=== PATIENT | male | born 1980 | race Caucasian/White ===

== ENCOUNTER 2016-12-26 01:59 | Inpatient (IN) | payer OTHER ==
[2016-12-26] VITALS (9 sets, daily range): BP systolic 114–151; BP diastolic 65–93; PULSE 94–118; RESP 14–28; TEMP 98–98.7; O2SAT 93–100
[~2016-12-26] VITALS: Ht 180.3 cm; Wt 80.6 kg
[~2016-12-26 01:59] MED LIST: 1-ME1LIQ PO; ALBU0.086 NEB; ALBU8I INH; CHLO25 PO; FOLI1 PO; LORA-474 PO; THIA100T PO
[2016-12-26] MEDS ORDERED: AMLO5TAB2 PO (02:17)
[2016-12-26] MEDS ORDERED: VENTAER INH (02:17)
[2016-12-26] MEDS ORDERED: AMLO10TA2 PO (02:17)
[2016-12-26] MEDS ORDERED: ALBU.5I NEB (02:17)
[2016-12-26] MEDS ORDERED: methylPREDNISolone SOD SUCC 125 MG/2 ML VIAL IVP ONE (02:45)
[2016-12-26] MEDS ORDERED: AZITHROMYCIN INJ 500 MG in SODIUM CHLOR 0.9% 250 ML INJ 250 ML IV ONE (02:45)
[2016-12-26] MEDS ORDERED: RESP: ALBUTEROL 2.5 MG/IPRATROPIUM 0.5 MG NEB (SCH) INH ONE (02:45)
[2016-12-26] MEDS ORDERED: cefTRIAXone INJ 1,000 MG in SODIUM CHLORIDE 0.9% INJ 100 ML IV ONE (02:45)
[2016-12-26] MEDS ORDERED: SODIUM CHLORIDE 0.9% FLUSH 5 ML FLUSH IVF PRN (02:45)
[2016-12-26 03:03] LABS: AUTOMATED NEUTROPHIL # 4.2 TH/MM3 (1.8-7.7); BASOPHIL # 0.3 TH/MM3 (0-0.2); BASOPHIL % 3.2 % (0.0-2.0); EOSINOPHIL # 0.8 TH/MM3 (0-0.4); EOSINOPHIL % 7.1 % (0.0-4.0); HEMATOCRIT 37.4 % (39.0-51.0); HEMO FLAGS DIFF FINAL; LYMPH % 39.7 % (9.0-44.0); LYMPHOCYTE # 4.3 TH/MM3 (1.0-4.8); MEAN CELL VOLUME 92.5 FL (80.0-100.0); MEAN CORPUSCULAR HEMOGLOBIN 31.2 PG (27.0-34.0); MEAN CORPUSCULAR HGB CONC 33.7 % (32.0-36.0); MONO % 10.8 % (0.0-8.0); NEUT % 39.2 % (16.0-70.0); PLATELET COUNT 305 TH/MM3 (150-450); RED BLOOD COUNT 4.04 MIL/MM3 (4.50-5.90); RED CELL DISTRIBUTION WIDTH 14.2 % (11.6-17.2); WHITE BLOOD COUNT 10.8 TH/MM3 (4.0-11.0)
[2016-12-26 03:15] LABS: APTT (PATIENT) 28.9 SEC (24.3-30.1); INTERNATIONAL NORMALIZED RATIO 0.9 RATIO; PROTHROMBIN TIME - PATIENT 10.2 SEC (9.8-11.6)
[2016-12-26 03:23] LABS: ANION GAP 12 MEQ/L (5-15); BICARBONATE 21.5 MEQ/L (21.0-32.0); BLOOD UREA NITROGEN 15 MG/DL (7-18); CHLORIDE 107 MEQ/L (98-107); MAGNESIUM 3.4 MG/DL (1.5-2.5); SODIUM (NA) 140 MEQ/L (136-145)
[2016-12-26] MEDS: RESP: ALBUTEROL 2.5 MG/IPRATROPIUM 0.5 MG NEB (SCH) INH (03:30)
[2016-12-26 03:36] LABS: ALKALINE PHOSPHATASE 65 U/L (45-117); ALT (GPT) 44 U/L (12-78); AST (GOT) 22 U/L (15-37); CREATINE KINASE 179 U/L (39-308); GLOMERULAR FILTRATION RATE 115 ML/MIN (>89); TOTAL BILIRUBIN ADULT 0.2 MG/DL (0.2-1.0)
--- NOTE | 2016-12-26 03:37 | PD ---
HPI Chief Complaint: Respiratory Distress Time Seen by Provider: 02:06 Travel History International Travel<30 days: No Contact w/Intl Traveler<30days: No Traveled to known affect area: No History of Present Illness HPI The patient is a 36 year old male who presents to the [facility] emergency department with a history of being placed under arrest and and tranported to a local residential approximately 45 minutes prior to arrival in the emergency department. The patient reports that approximately 2 years ago he was diagnosed with COPD. He reports that he continues to smoke although he is trying to quit. He is followed by the [facility] for his primary care. He reports that he has been using nebulizer treatments more frequently over the last week. He reports that he has had a dry cough. The patient reports that after being transported to the residential he began to have wheezing. Ambulance services were called by the [employer] [employer] staff officer. The patient was noted to have diffuse wheezing. The patient was brought in by ambulance services with albuterol nebulizer treatments being administered en route. The patient was also given Solu-Medrol 125 mg IV 1, magnesium 2 g IV, and 0.3 mg of subcutaneous epinephrine times one. The patient denies any history of recent neck pain, abdominal pain, vomiting, diarrhea, urinary symptoms, or neurologic symptoms. The patient denies having any fevers. He reports that he did receive his influenza vaccination this past season. [facility] Past Medical History Narrative Medical The patient's past medical history is significant for COPD, history of alcohol abuse, hypertension. Arthritis: Yes Autoimmune Disease: No Anxiety: Yes Depression: Yes Cancer: No Cardiovascular Problems: Yes COPD: Yes Diminished Hearing: No Endocrine: No Gastrointestinal Disorders: Yes ("ELEVATED LIVER ENZYMES") Genitourinary: No Hypertension: Yes Immune Disorder: No Implanted Vascular Access Dvce: Yes Musculoskeletal: Yes (CHRONIC FX FROM ARTHRITIS BILATERAL ANKLES) Neurologic: Yes Psychiatric: Yes Reproductive: No Respiratory: Yes (copd) Immunizations Current: Yes Pneumonia: Yes Seizures: Yes (alcohol related, last one was March) Past Surgical History Narrative Surgical The patient's past surgical history is significant for bilateral ankle fracture surgery in 2002, history of maxillofacial surgery, history of right arm ORIF. Body Medical Devices: titanium plate r side of face, screws/pins bilat ankles Other Surgery: Yes (TITANIUM PLATE AND SCREWS TO RIGHT FACE/SKULL) Social History Alcohol Use: Yes (a couple times a week) Tobacco Use: Yes (11/02 PPD) Substance Use: Yes (MARIJUANA) Allergies-Medications (Allergen,Severity, Reaction): Coded Allergies: No Known Allergies (Unverified , 06/21/16) Reported Meds & Prescriptions Reported Meds & Active Scripts Active Reported Amlodipine (Amlodipine Besylate) 10 Mg Tab 10 Mg PO DAILY Amlodipine (Amlodipine Besylate) 5 Mg Tab 5 Mg PO DAILY Ventolin Hfa 18 GM Inh (Albuterol Sulfate) 90 Mcg/Act Aer 1 Puff INH Q4H PRN Albuterol Neb (Albuterol Sulfate) 2.5 Mg/0.5 Ml Neb 2.5 Mg NEB ONCE Note: The Albuterol Sulfate Inhalation Solution is concentrated and must be diluted. Read complete instructions carefully before using. Review of Systems Except as stated in HPI: all other systems reviewed are Neg General / Constitutional: No: Fever Eyes: No: Visual changes HENT: Positive: Congestion, No: Headaches Cardiovascular: Positive: Dyspnea on exertion, No: Chest Pain or Discomfort Respiratory: Positive: Cough, Shortness of Breath, Wheezing Gastrointestinal: Positive: Nausea, No: Vomiting, Diarrhea, Abdominal Pain, Changes in Bowel Habits, Indigestion, Loss of Appetite Genitourinary: No: Dysuria Musculoskeletal: No: Pain Skin: No Rash Neurologic: No: Weakness, Focal Abnormalities, Coordination Problem, Change in Mentation, Slurred Speech, Sensory Disturbance Psychiatric: No: Depression Endocrine: No: Polydipsia Hematologic/Lymphatic: No: Easy Bruising Physical Exam Narrative General: The patient is a well-developed well-nourished male, short of breath on arrival with some wheezing noted and a frequent dry cough on exam. Head and Neck exam: Head is normocephalic atraumatic. Eyes: EOMI, pupils are equal round and reactive to light. Nose: Midline septum with pink mucous membranes Mouth: Dentition unremarkable. Moist mucus membranes. Posterior oropharynx is not erythematous. No tonsillar hypertrophy. Uvula midline. Airway patent. Neck: No palpable lymphadenopathy. No nuchal rigidity. No thyromegaly. Cardiovascular: Sinus tachycardia in the low 100s without murmurs, gallops, or rubs. No pulse deficit to the extremities and simultaneous auscultation and palpation of his radial artery. Lungs: The patient has expiratory wheezes audible throughout bilateral lung wilson, no rhonchi, no crackles. Abdomen: Soft, without tenderness to palpation in all 4 quadrants of the abdomen. No guarding, rebound, or rigidity. Normal bowel sounds are audible. Extremities: No clubbing or cyanosis, trace pedal edema left lower extremity. The patient reports having chronic swelling of bilateral ankles intermittently related to hardware being in place and a prior injury. 2+ pulses in all 4 extremities. No calf tenderness on palpation. Back: No spinous process tenderness to palpation. No costovertebral angle tenderness to palpation. Neurologic Exam: Grossly nonfocal. Skin Exam: No rash noted. Intact skin that is warm and dry. Data Data Last Documented VS Vital Signs Date Time Temp Pulse Resp B/P Pulse Ox O2 Delivery O2 Flow Rate FiO2 12/26/16 04:00 94 14 114/73 93 Nasal Cannula 2 12/26/16 02:03 98.7 Orders Complete Blood Count With Diff (12/26/16 02:42) Comprehensive Metabolic Panel (12/26/16 02:42) B-Type Natriuretic Peptide (12/26/16 02:42) Act Partial Throm Time (Ptt) (12/26/16 02:42) Prothrombin Time / Inr (Pt) (12/26/16 02:42) Magnesium (Mg) (12/26/16 02:42) Ckmb (Isoenzyme) Profile (12/26/16 02:42) Troponin I (12/26/16 02:42) Urinalysis - C+S If Indicated (12/26/16 02:42) Influenzae A/B Antigen (12/26/16 02:42) Blood Culture (12/26/16 02:42) Iv Access Insert/Monitor (12/26/16 02:42) Electrocardiogram (12/26/16 02:42) Ecg Monitoring (12/26/16 02:42) Oximetry (12/26/16 02:42) Oxygen Administration (12/26/16 02:42) Chest, Single Ap (12/26/16 02:42) Sodium Chloride 0.9% Flush (Ns Flush) (12/26/16 02:45) Methylprednisolone So Succ Inj (Solumedr (12/26/16 02:45) Albuterol-Ipratropium Neb (Duoneb Neb) (12/26/16 02:45) Ceftriaxone Inj (Rocephin Inj) (12/26/16 02:45) Azithromycin Inj (Zithromax Inj) (12/26/16 02:45) Albuterol-Ipratropium Neb (Duoneb Neb) (12/26/16 03:30) CKMB (12/26/16 02:45) CKMB% (12/26/16 02:45) Admit Order (Ed Use Only) (12/26/16 05:10) Labs Laboratory Tests Test 12/26/16 12/26/16 02:45 04:50 White Blood Count 10.8 TH/MM3 Red Blood Count 4.04 MIL/MM3 Hemoglobin 12.6 GM/DL Hematocrit 37.4 % Mean Corpuscular Volume 92.5 FL Mean Corpuscular Hemoglobin 31.2 PG Mean Corpuscular Hemoglobin 33.7 % Concent Red Cell Distribution Width 14.2 % Platelet Count 305 TH/MM3 Mean Platelet Volume 9.6 FL Neutrophils (%) (Auto) 39.2 % Lymphocytes (%) (Auto) 39.7 % Monocytes (%) (Auto) 10.8 % Eosinophils (%) (Auto) 7.1 % Basophils (%) (Auto) 3.2 % Neutrophils # (Auto) 4.2 TH/MM3 Lymphocytes # (Auto) 4.3 TH/MM3 Monocytes # (Auto) 1.2 TH/MM3 Eosinophils # (Auto) 0.8 TH/MM3 Basophils # (Auto) 0.3 TH/MM3 CBC Comment DIFF FINAL Differential Comment Prothrombin Time 10.2 SEC Prothromb Time International 0.9 RATIO Ratio Activated Partial 28.9 SEC Thromboplast Time Sodium Level 140 MEQ/L Potassium Level 4.0 MEQ/L Chloride Level 107 MEQ/L Carbon Dioxide Level 21.5 MEQ/L Anion Gap 12 MEQ/L Blood Urea Nitrogen 15 MG/DL Creatinine 0.76 MG/DL Estimat Glomerular Filtration 115 ML/MIN Rate Random Glucose 103 MG/DL Calcium Level 8.9 MG/DL Magnesium Level 3.4 MG/DL Total Bilirubin 0.2 MG/DL Aspartate Amino Transf 22 U/L (AST/SGOT) Alanine Aminotransferase 44 U/L (ALT/SGPT) Alkaline Phosphatase 65 U/L Total Creatine Kinase 179 U/L Creatine Kinase MB 1.8 NG/ML Troponin I LESS THAN 0.02 NG/ML B-Type Natriuretic Peptide 15 PG/ML Total Protein 7.2 GM/DL Albumin 4.1 GM/DL Urine Color YELLOW Urine Turbidity CLEAR Urine pH 5.5 Urine Specific [place] 1.021 Urine Protein NEG mg/dL Urine Glucose (UA) 70 mg/dL Urine Ketones 10 mg/dL Urine Occult Blood NEG Urine Nitrite NEG Urine Bilirubin NEG Urine Urobilinogen LESS THAN 2.0 MG/DL Urine Leukocyte Esterase NEG Urine RBC LESS THAN 1 /hpf Urine WBC 1 /hpf Urine Mucus FEW /lpf Microscopic Urinalysis Comment CULT NOT INDICATED MDM Medical Decision Making Medical Screen Exam Complete: Yes Emergency Medical Condition: Yes Medical Record Reviewed: Yes Interpretation(s) Last Impressions Chest X-Ray 12/26/16 0242 Signed Impressions: Service Date/Time: Monday, December 26, 2016 02:59 - CONCLUSION: 1. Left- sided perihilar and basilar airspace disease most characteristic of a mild bronchopneumonia. Gonzales Hensley MD Differential Diagnosis Influenza, versus pneumonia, versus COPD exacerbation, versus bronchitis, versus congestive heart failure, versus pneumothorax Narrative Course During the course of the patients emergency department visit, the patients history, examination, and differential diagnosis were reviewed with the patient. The patient had IV access obtained and blood work sent for analysis. The patient was placed on a sail cutter with oximetry and blood pressure monitoring. An EKG has been ordered. The patient's EKG reveals a sinus rhythm of 97, nonspecific T-wave abnormalities, no acute ST segment elevation. The patient was provided DuoNeb 3, Solu-Medrol 125 mg IV was given prior to arrival by ambulance services, Rocephin 1 g IV and azithromycin 500 mg IV was administered 1. The patients laboratory studies were reviewed and remarkable for a white count of 10.8, hemoglobin 12.6, platelets 305 with 10.8 monocytes, CMP is remarkable for magnesium of 3.4, CPK 179, troponin I less than 0.02, BNP 15, PT PTT unremarkable. Urinalysis shows 70 glucose, ketones 10. Radiology studies were reviewed and remarkable for a chest x-ray that shows a left-sided perihilar and basilar airspace disease most characteristic of a mild bronchopneumonia. The patient was treated with antibiotic. The patient on reexamination continues to have diffuse wheezing and is requiring supplemental nasal cannula O2. The patients results were discussed with the patient, including the plan of care. I explained that further testing and/ or monitoring is indicated based on the patients history, examination, and/ or laboratory findings. Therefore, I recommended admission for additional evaluation. The patient expressed understanding and was agreeable with this plan. The patient was admitted to the hospital in stable condition and [facility] Sepsis Criteria SIRS Criteria (2 or more): Heart rate over 90, RR > 20 or PaCO2 < 32 Physician Communication Physician Communication The [facility] agree to admit the patient for further evaluation and treatment at this time. Diagnosis Primary Impression: COPD exacerbation Additional Impression: Pneumonia Qualified Code: J18.1 - Pneumonia of left lower lobe due to infectious organism Admitting Information Admitting Physician Requests: Admit Pily Robles MD Dec 26, 2016 03:36
[2016-12-26 03:48] LABS: CKMB 1.8 NG/ML (0.5-3.6)
--- NOTE | 2016-12-26 04:09 | RADRPT ---
EXAM DATE/TIME: 12/26/2016 02:59 [facility] COMPARISON: CHEST SINGLE AP, February 20, 2015, 7:34. INDICATIONS : Patient states cough. MEDICAL HISTORY : None. SURGICAL HISTORY : None. ENCOUNTER: Initial ACUITY: 2 days PAIN SCORE: 2/10 LOCATION: Bilateral chest FINDINGS: There is mild left perihilar airspace disease that may represent mild bronchopneumonia. Right lung re latively clear. No effusion. No pneumothorax. Heart size within normal limits. CONCLUSION: 1. Left-sided perihilar and basilar airspace disease most characteristic of a mild bronchopneumonia. Gonzales Hensley MD on December 26, 2016 at 4:05 Board Certified Radiologist. This report was verified electronically.
[2016-12-26 05:01] LABS: BLOOD, URINE NEG (NEG); COMMENT (UR) CULT NOT INDICATED; CULTURE IF INDICATED CULT NOT INDICATED; GLUCOSE,URINE 70 mg/dL (NEG); KETONE, URINE 10 mg/dL (NEG); MUCUS URINE FEW /lpf (OCC); NITRITE,URINE NEG (NEG); PH, URINE 5.5 (5.0-8.5); URINE COLOR YELLOW (YELLW/STRAW)
[2016-12-26] MEDS ORDERED: SODIUM CHLORIDE 0.9% FLUSH 5 ML FLUSH FLUSH PRN (05:15)
[2016-12-26] MEDS ORDERED: NALOXONE HCL 0.4 MG/ML AMP IV PRN (05:15)
[2016-12-26] MEDS ORDERED: ACETAMINOPHEN 325 MG TAB PO PRN (05:15)
[2016-12-26] MEDS ORDERED: cefTRIAXone INJ 1,000 MG in SODIUM CHLORIDE 0.9% INJ 100 ML IV SCH (05:30)
[2016-12-26] MEDS: SODIUM CHLOR 0.9% 1000 ML INJ 1,000 ML IV SCH ×2 (06:08→14:29)
[2016-12-26] MEDS: RESP: ALBUTEROL 2.5 MG/IPRATROPIUM 0.5 MG NEB (SCH) NEB ×4 (07:35→19:45)
--- NOTE | 2016-12-26 08:41 | HHI.HP ---
[facility] Admission Diagnosis copd exacerbation, pneumonia Diagnoses: Chief Complaint: sob, cough, wheezing Travel History International Travel<30 Days: No Contact w/Intl Traveler <30 Da: No Traveled to Known Affected Are: No History of Present Illness This is a 36-year-old male history of COPD, hypertension, alcohol abuse. Apparently patient was placed under arrest last night and at the skilled nursing he started to complain of shortness of breath. Indicates he's had increased cough with wheezing. He's had increased nasal drainage, no sputum. He thinks he may have had a fever associated with chills. He continues to smoke approximately half a pack. Patient also endorses history of EtOH abuse, he had a couple of bottles of wine yesterday. Noted very tremulous, states "I'm going through withdrawals". In the emergency room, patient was evaluated was noted hypoxic. He was tachycardic, no fever. Hemodynamically stable. Artery workup essentially unremarkable. No white blood count elevation. Chest x-ray showed left-sided perihilar and basilar airspace disease most characteristic of a mild bronchopneumonia. Cultures were obtained, influenza was negative. Patient was started on empiric antibiotics, given DuoNeb's and IV steroids. Patient is evaluated in the presence of 2 guards. SOB has improved. Patient is admitted for further evaluation and treatment. Review of Systems Constitutional: COMPLAINS OF: Fever, Chills, DENIES: Diaphoretic episodes, Fatigue, Weight gain, Weight loss, Dizziness, Change in appetite, Night Sweats Endocrine: DENIES: Heat/cold intolerance, Polydipsia, Polyuria, Polyphagia Eyes: DENIES: Blurred vision, Diplopia, Eye inflammation, Eye pain, Vision loss , Photosensitivity, Double Vision Ears, nose, mouth, throat: DENIES: Tinnitus, Hearing loss, Vertigo, Nasal discharge, Oral lesions, Throat pain, Hoarseness, Ear Pain, Running Nose, Epistaxis, Sinus Pain, Toothache, Odynophagia Respiratory: COMPLAINS OF: Cough, Wheezing, Sputum production, Shortness of breath, DENIES: Apneas, Snoring, Hemoptysis Cardiovascular: COMPLAINS OF: Chest pain, DENIES: Palpitations, Syncope, Dyspnea on Exertion, PND, Lower Extremity Edema, Orthopnea, Claudication Gastrointestinal: DENIES: Abdominal pain, Black stools, Bloody stools, Constipation, Diarrhea, Nausea, Vomiting, Difficulty Swallowing, Anorexia Genitourinary: DENIES: Sexual dysfunction, Urinary frequency, Urinary incontinence, Urgency, Hematuria, Dysuria, Nocturia, Penile Discharge, Testicular Pain, Testicular Swelling Musculoskeletal: DENIES: Joint pain, Muscle aches, Stiffness, Joint Swelling, Back pain, Neck pain Integumentary: DENIES: Abnormal pigmentation, Nail changes, Pruritus, Rash Hematologic/lymphatic: DENIES: Bruising, Lymphadenopathy Immunologic/allergic: DENIES: Eczema, Urticaria Neurologic: DENIES: Abnormal gait, Headache, Localized weakness, Paresthesias, Seizures, Speech Problems, Tremor, Poor Balance Psychiatric: COMPLAINS OF: Anxiety, DENIES: Confusion, Mood changes, Depression, Hallucinations, Agitation, Suicidal Ideation, Homicidal Ideation, Delusions Past Family Social History Past Medical History COPD Elevated liver enzymes ETOH abuse HTN Anxiety Depression Seizures related to ETOH Past Surgical History Titanium plate and screws to right face and skull Right arm ORIF Bilateral ankle fracture surgery 2003 Reported Medications Reported Meds & Active Scripts Active Reported Amlodipine (Amlodipine Besylate) 10 Mg Tab 10 Mg PO DAILY Amlodipine (Amlodipine Besylate) 5 Mg Tab 5 Mg PO DAILY Ventolin Hfa 18 GM Inh (Albuterol Sulfate) 90 Mcg/Act Aer 1 Puff INH Q4H PRN Albuterol Neb (Albuterol Sulfate) 2.5 Mg/0.5 Ml Neb 2.5 Mg NEB ONCE Note: The Albuterol Sulfate Inhalation Solution is concentrated and must be diluted. Read complete instructions carefully before using. Allergies: Coded Allergies: No Known Allergies (Unverified , 06/21/16) Active Ordered Medications Inpatient Medications Acetaminophen (Tylenol) 650 mg Q4H PRN PO TEMP > 100.4; Start 12/26/16 at 05:15 Albuterol/ Ipratropium (Duoneb Neb) 1 ampule QID NEB NEB Last administered on 12/26/16t 07:35; Start 12/26/16 at 08:00 Albuterol/ Ipratropium 1 ampule 1 ampule Q6HR NEB PRN NEB WHEEZING; Start 12/26 at 05:30 Amlodipine Besylate 5 mg 5 mg DAILY PO ; Start 12/26/16 at 09:00 Azithromycin 500 mg/Sodium Chloride 250 ml @ 250 mls/hr Q24H IV ; Start at 04:00 Azithromycin/ Sodium Chloride (Zithromax Inj/ NS 250 ml Inj) 250 ml @ 250 mls/ hr ONCE ONCE IV Last administered on 12/26/16 04:06; Start 12/26/16 at 02:45 ; Stop 12/26/16 at 03:44; Status DC Ceftriaxone Sodium 1000 mg/ Sodium Chloride 100 ml @ 200 mls/hr Q24H IV ; Start 12/27/16 at 09:00; Stop 12/27/16 at 09:00; Status DC Ceftriaxone Sodium/Sodium Chloride (Rocephin Inj/NS Inj) 100 ml @ 200 mls/hr Q24H IV ; Start 12/27/16 at 03:00 Chlordiazepoxide (Librium) 10 mg TID PRN PO agitation; Start 12/26/16 at 08:45 ; Status UNV Enoxaparin Sodium (Lovenox Inj) 40 mg Q24H SQ ; Start 12/26/16 at 08:45; Status UNV Fluticasone Propionate (Flonase Alonso Spr) 2 spray DAILY EACH NARE ; Start at 09:00; Status UNV Folic Acid (Folate) 1 mg DAILY PO ; Start 12/26/16 at 09:00; Status UNV IV Flush (NS Flush) 2 ml BID FLUSH ; Start 12/26/16 at 09:00 Methylprednisolone Sodium Succinate (SoluMEDROL INJ) 40 mg Q12HR IV PUSH ; Start 12/26/16 at 09:00; Status UNV Methylprednisolone Sodium Succinate 125 mg 125 mg ONCE ONCE IVP ; Start at 02:45; Stop 12/26/16 at 02:46; Status DC Naloxone HCl (Narcan Inj) 0.4 mg UNSCH PRN IV SEE LABEL COMMENTS; Start at 05:15 Nicotine (Habitrol 7 Mg Patch.24 Hr) 1 patch DAILY TD ; Start 12/26/16 at 09:00 ; Status UNV Sodium Chloride (NS 1000 ml Inj) 1,000 ml @ 100 mls/hr Q10H IV Last administered on 12/26/16 06:08; Start 12/26/16 at 05:15 Thiamine HCl (Vitamin B1) 100 mg DAILY PO ; Start 12/26/16 at 09:00; Status UNV Family History Mother and father both alive and well, doesn't know about their medical history Social History Patient is unemployed, currently under the custody of the skilled nursing. Was arrested last night. Positive for alcohol use, drinks a couple of bottles once a day. Smokes half pack a day since age 15. Denies illegal drug use. Patient has no children, . Physical Exam Vital Signs Vital Signs Date Time Temp Pulse Resp B/P Pulse Ox O2 Delivery O2 Flow Rate FiO2 12/26/16 07:36 99 Nasal Cannula 3.00 12/26/16 04:00 94 14 114/73 93 Nasal Cannula 2 12/26/16 03:05 96 Nasal Cannula 3.00 12/26/16 02:03 98.7 101 28 142/65 95 12/26/16 01:59 98 Nasal Cannula 3 12/26/16 01:59 28 90 Room Air Physical Exam GENERAL: This is a well-nourished, patient noted anxious, tremulous. SKIN: No rashes, ecchymoses or lesions. Cool and dry. HEAD: Atraumatic. Normocephalic. No temporal or scalp tenderness. EYES: Pupils equal round and reactive. Extraocular motions intact. No scleral icterus. No injection or drainage. ENT: Nose without bleeding, purulent drainage or septal hematoma. Throat without erythema, tonsillar hypertrophy or exudate. Uvula midline. Airway patent. NECK: Trachea midline. No JVD or lymphadenopathy. Supple, nontender, no meningeal signs. CARDIOVASCULAR: Regular rate and rhythm without murmurs, gallops, or rubs. RESPIRATORY: Diffuse rhonchi, expiratory wheezes. GASTROINTESTINAL: Abdomen soft, non-tender, nondistended. No hepato-splenomegaly , or palpable masses. No guarding. MUSCULOSKELETAL: Extremities without clubbing, cyanosis, or edema. No joint tenderness, effusion, or edema noted. No calf tenderness. Negative Homans sign bilaterally. NEUROLOGICAL: Awake, alert oriented 3. No focal deficits. Patient is noted tremulous. Laboratory Laboratory Tests Test 12/26/16 12/26/16 02:45 04:50 White Blood Count 10.8 Red Blood Count 4.04 Hemoglobin 12.6 Hematocrit 37.4 Mean Corpuscular Volume 92.5 Mean Corpuscular Hemoglobin 31.2 Mean Corpuscular Hemoglobin 33.7 Concent Red Cell Distribution Width 14.2 Platelet Count 305 Mean Platelet Volume 9.6 Neutrophils (%) (Auto) 39.2 Lymphocytes (%) (Auto) 39.7 Monocytes (%) (Auto) 10.8 Eosinophils (%) (Auto) 7.1 Basophils (%) (Auto) 3.2 Neutrophils # (Auto) 4.2 Lymphocytes # (Auto) 4.3 Monocytes # (Auto) 1.2 Eosinophils # (Auto) 0.8 Basophils # (Auto) 0.3 CBC Comment DIFF FINAL Differential Comment Prothrombin Time 10.2 Prothromb Time International 0.9 Ratio Activated Partial 28.9 Thromboplast Time Sodium Level 140 Potassium Level 4.0 Chloride Level 107 Carbon Dioxide Level 21.5 Anion Gap 12 Blood Urea Nitrogen 15 Creatinine 0.76 Estimat Glomerular Filtration 115 Rate Random Glucose 103 Calcium Level 8.9 Magnesium Level 3.4 Total Bilirubin 0.2 Aspartate Amino Transf 22 (AST/SGOT) Alanine Aminotransferase 44 (ALT/SGPT) Alkaline Phosphatase 65 Total Creatine Kinase 179 Creatine Kinase MB 1.8 Troponin I LESS THAN 0.02 B-Type Natriuretic Peptide 15 Total Protein 7.2 Albumin 4.1 Urine Color YELLOW Urine Turbidity CLEAR Urine pH 5.5 Urine Specific [place] 1.021 Urine Protein NEG Urine Glucose (UA) 70 Urine Ketones 10 Urine Occult Blood NEG Urine Nitrite NEG Urine Bilirubin NEG Urine Urobilinogen LESS THAN 2.0 Urine Leukocyte Esterase NEG Urine RBC LESS THAN 1 Urine WBC 1 Urine Mucus FEW Microscopic Urinalysis Comment CULT NOT INDICATED Date/Time Procedure Status Source Growth 12/26/16 02:50 Influenza Types A,B Antigen (RAFA) - Final Complete Nasal Aspirate NEGATIVE FOR FLU A AND B ANTIGEN.... 12/26/16 02:45 Aerobic Blood Culture Received Blood Peripheral Pending 12/26/16 02:45 Anaerobic Blood Culture Received Blood Peripheral Pending Result Diagram: 12/26/1624412/26/16244 Imaging Last Impressions Chest X-Ray 12/26/16241 Signed Impressions: Service Date/Time: Monday, December 26, 2016 02:59 - CONCLUSION: 1. Left- sided perihilar and basilar airspace disease most characteristic of a mild bronchopneumonia. Gonzales Hensley MD Assessment and Plan Problem List: (1) COPD exacerbation (2) Pneumonia (3) Hypoxia (4) Alcohol withdrawal (5) Alcohol abuse (6) Hypertension (7) Tobacco use Assessment and Plan Admit to Dr. Clement 36-year-old male with history of COPD not oxygen dependent, tobacco abuse. Patient to the emergency room with increased cough, wheezing, shortness of breath. Found with left-sided perihilar and basilar airspace disease most characteristic of mild bronchopneumonia per x-ray. Patient admitted with COPD exacerbation, hypoxia and pneumonia. -Continue with IV fluids Continue with empiric antibiotics and follow cultures Solu-Medrol 40 mg IV every 12 Continue with DuoNeb's Monitor sats We will order Mucinex Alcohol abuse, with withdrawal symptoms Start thiamine and folic acid Librium 10 mg PO TID as needed for agitation Hypertension Continue home medication Lovenox for DVT prophylaxis Home medications reviewed, initiated as indicated Plan of care has been discussed with the patient, attending and registered nurse. Further management of the patient will be dependent on the hospital course This patient was seen by myself and Dr. Clement, this H&P is written on her behalf Physician Certification 2 Midnight Certification Type: Admission for Inpatient Services Order for Inpatient Services The services are ordered in accordance with Medicare regulations or non- Medicare payer requirements, as applicable. In the case of services not specified as inpatient-only, they are appropriately provided as inpatient services in accordance with the 2-midnight benchmark. Estimated LOS (days): 2 2 days is the estimated time the patient will need to remain in the hospital, assuming treatment plan goals are met and no additional complications. Post-Hospital Plan: Home Problem Qualifiers (1) Pneumonia: Qualified Code: J18.1 - Pneumonia of left lower lobe due to infectious organism (2) Alcohol withdrawal: Qualified Code: F10.230 - Alcohol withdrawal, uncomplicated (3) Hypertension: Qualified Code: I10 - Essential hypertension Rosmery Solis Dec 26, 2016 08:41
[2016-12-26] MEDS ORDERED: guaiFENesin/DEXTROMETHORPHAN 200 MG/20 MG/10 ML CUP PO PRN (08:45)
[2016-12-26] MEDS: FLUTICASONE PROPIONATE 50 MCG/ACT 16 GM NASAL SPRAY EACH NARE SCH (09:00)
[2016-12-26] MEDS: SODIUM CHLORIDE 0.9% FLUSH 5 ML FLUSH FLUSH SCH ×2 (09:00→21:44)
[2016-12-26] MEDS: ENOXAPARIN SODIUM 40 MG/0.4 ML SYRINGE SQ SCH (09:26)
[2016-12-26] MEDS: NICOTINE 7 MG/24 HR PATCH TD SCH (09:53)
[2016-12-26] MEDS: amLODIPine BESYLATE 5 MG TAB PO SCH (09:54)
[2016-12-26] MEDS: guaiFENesin E.R. 600 MG TAB PO SCH ×2 (09:54→21:44)
[2016-12-26] MEDS: methylPREDNISolone SOD SUCC 40 MG/1 ML VIAL IV PUSH SCH ×2 (09:54→21:44)
[2016-12-26] MEDS: THIAMINE HCL 100 MG TAB PO SCH (09:54)
[2016-12-26] MEDS: FOLIC ACID 1 MG TAB PO SCH (09:54)
--- NOTE | 2016-12-26 12:01 | EKG ---
Date Performed: 12/26/2016 Time Performed: 03:54:08 PTAGE: 36 years EKG: Sinus rhythm NONSPECIFIC T-WAVE ABNORMALITY BORDERLINE ECG Compared to the PREVIOUS TRACING , nonspecific T wave changes are more prominent PREVIOUS TRACIN2015 06.04 DOCTOR: Del Sears Interpretating Date/Time 12/26/2016 12:00:38
[2016-12-26] MEDS ORDERED: LORazepam 2 MG/ML VIAL IV ONE (19:15)
[2016-12-26] MEDS: REMOVE OLD NICODERM (NICOTINE) PATCH TD SCH (21:44)
[2016-12-27] VITALS (9 sets, daily range): BP systolic 117–152; BP diastolic 63–90; PULSE 82–99; RESP 12–20; TEMP 97.5–99.4; O2SAT 95–98
[2016-12-27] MEDS: RESP: ALBUTEROL 2.5 MG/IPRATROPIUM 0.5 MG NEB (PRN) NEB (00:26)
[2016-12-27] MEDS: AZITHROMYCIN INJ 500 MG in SODIUM CHLOR 0.9% 250 ML INJ 250 ML IV SCH (03:11)
[2016-12-27] MEDS: SODIUM CHLOR 0.9% 1000 ML INJ 1,000 ML IV SCH ×2 (03:14→10:10)
[2016-12-27] MEDS: cefTRIAXone INJ 1,000 MG in SODIUM CHLORIDE 0.9% INJ 100 ML IV SCH (03:14)
[2016-12-27] MEDS: RESP: ALBUTEROL 2.5 MG/IPRATROPIUM 0.5 MG NEB (SCH) NEB ×4 (07:26→20:07)
[2016-12-27] MEDS ORDERED: cefTRIAXone INJ 1,000 MG in SODIUM CHLORIDE 0.9% INJ 100 ML IV SCH (09:00)
[2016-12-27 09:09] LABS: AUTOMATED NEUTROPHIL # 14.4 TH/MM3 (1.8-7.7); BASOPHIL % 0.2 % (0.0-2.0); HEMATOCRIT 40.7 % (39.0-51.0); HEMO FLAGS DIFF FINAL; LYMPH % 11.8 % (9.0-44.0); LYMPHOCYTE # 2.1 TH/MM3 (1.0-4.8); MEAN CELL VOLUME 93.7 FL (80.0-100.0); MEAN CORPUSCULAR HEMOGLOBIN 31.4 PG (27.0-34.0); MEAN CORPUSCULAR HGB CONC 33.6 % (32.0-36.0); MONO % 6.8 % (0.0-8.0); NEUT % 81.2 % (16.0-70.0); PLATELET COUNT 302 TH/MM3 (150-450); RED BLOOD COUNT 4.35 MIL/MM3 (4.50-5.90); RED CELL DISTRIBUTION WIDTH 14.5 % (11.6-17.2); WHITE BLOOD COUNT 17.7 TH/MM3 (4.0-11.0)
[2016-12-27 09:28] LABS: BICARBONATE 22.4 MEQ/L (21.0-32.0); POTASSIUM 3.7 MEQ/L (3.5-5.1)
[2016-12-27] MEDS ORDERED: PNEUMOCOCCAL POLYVALENT INJ 25 MCG/0.5 ML SYR IM ONE (10:00)
[2016-12-27] MEDS: FLUTICASONE PROPIONATE 50 MCG/ACT 16 GM NASAL SPRAY EACH NARE SCH (10:09)
[2016-12-27] MEDS: guaiFENesin E.R. 600 MG TAB PO SCH ×2 (10:10→22:10)
[2016-12-27] MEDS: amLODIPine BESYLATE 5 MG TAB PO SCH (10:10)
[2016-12-27] MEDS: SODIUM CHLORIDE 0.9% FLUSH 5 ML FLUSH FLUSH SCH ×2 (10:10→22:11)
[2016-12-27] MEDS: FOLIC ACID 1 MG TAB PO SCH (10:10)
[2016-12-27] MEDS: ENOXAPARIN SODIUM 40 MG/0.4 ML SYRINGE SQ SCH (10:11)
[2016-12-27] MEDS: NICOTINE 7 MG/24 HR PATCH TD SCH (10:11)
[2016-12-27] MEDS: THIAMINE HCL 100 MG TAB PO SCH (10:11)
[2016-12-27] MEDS: methylPREDNISolone SOD SUCC 40 MG/1 ML VIAL IV PUSH SCH ×2 (10:59→22:10)
--- NOTE | 2016-12-27 16:34 | HHI.PR ---
Subjective Interval History awake alert an doriented breathing much better no fever tremors better on oxygen no other complaints Vitals/Results Intake & Output 12/26/16 12/26/16 12/27/16 15:00 23:00 07:00 Intake Total 480 ml 240 ml Output Total 250 ml 600 ml Balance 230 ml -360 ml Intake Oral 480 ml 240 ml Output Urine Total 250 ml 600 ml # Bowel Movements 0 0 Vital Signs Vital Signs Date Time Temp Pulse Resp B/P Pulse Ox O2 Delivery O2 Flow Rate FiO2 12/27/16 12:00 98.0 98 12 133/82 97 12/27/16 08:00 99.4 96 12 128/82 98 12/27/16 07:26 97 Nasal Cannula 2.00 12/27/16 04:00 98.1 99 20 151/88 96 12/27/16 00:00 98.0 98 20 152/90 96 12/26/16 20:00 98.2 98 20 151/76 94 12/26/16 19:45 100 Nasal Cannula 2.00 CBC/BMP: 12/27/16 0842 12/27/16 0842 Lab Results Laboratory Tests Test 12/27/16 08:42 White Blood Count 17.7 TH/MM3 Red Blood Count 4.35 MIL/MM3 Hemoglobin 13.7 GM/DL Hematocrit 40.7 % Mean Corpuscular Volume 93.7 FL Mean Corpuscular Hemoglobin 31.4 PG Mean Corpuscular Hemoglobin 33.6 % Concent Red Cell Distribution Width 14.5 % Platelet Count 302 TH/MM3 Mean Platelet Volume 9.4 FL Neutrophils (%) (Auto) 81.2 % Lymphocytes (%) (Auto) 11.8 % Monocytes (%) (Auto) 6.8 % Eosinophils (%) (Auto) 0.0 % Basophils (%) (Auto) 0.2 % Neutrophils # (Auto) 14.4 TH/MM3 Lymphocytes # (Auto) 2.1 TH/MM3 Monocytes # (Auto) 1.2 TH/MM3 Eosinophils # (Auto) 0.0 TH/MM3 Basophils # (Auto) 0.0 TH/MM3 CBC Comment DIFF FINAL Differential Comment Sodium Level 139 MEQ/L Potassium Level 3.7 MEQ/L Chloride Level 107 MEQ/L Carbon Dioxide Level 22.4 MEQ/L Anion Gap 10 MEQ/L Blood Urea Nitrogen 11 MG/DL Creatinine 0.65 MG/DL Estimat Glomerular Filtration 137 ML/MIN Rate Random Glucose 136 MG/DL Calcium Level 9.0 MG/DL Physical Exam General General Appearance: No Acute Distress, Comfortable Eyes Eye Exam: Pupils Equal, Pupils Reactive Throat Throat Exam: Oral Mucosa [place] & Moist Neck Neck Exam: Neck Supple Pulmonary Resp Exam: Breath Sounds Equal, No Distress Resp Remarks coarse Cardiology CV Exam: Regular, Good Perfusion Gastrointestinal/Abdomen GI Exam: Soft, Non-Tender, Bowel Sounds Present Genitourinary Exam: Clear Urine Integumentary Skin Exam: Clear, Warm Extremeties Extremities Exam: No Edema Neurologic Neuro Exam: Alert, Awake, Oriented, Speech Clear, Moving All Extremities Psychiatric Psych Exam: Appropriate Responses Assessment/Plan Assessment/Plan Assessment and Plan Assessment and Plan Problem List: (1) COPD exacerbation (2) Pneumonia (3) Hypoxia (4) Alcohol withdrawal (5) Alcohol abuse (6) Hypertension (7) Tobacco use Assessment and Plan 36-year-old male with history of COPD not oxygen dependent, tobacco abuse. Patient to the emergency room with increased cough, wheezing, shortness of breath. Found with left-sided perihilar and basilar airspace disease most characteristic of mild bronchopneumonia per x-ray. Patient admitted with COPD exacerbation, hypoxia and pneumonia. -Continue with IV fluids, decrease to 50 cc/hr Continue with empiric antibiotics and follow cultures Solu-Medrol 40 mg IV every 12 Continue with DuoNeb's Monitor sats switch to po steroids and antibiotics in am, if doing ok -leucocytosis sec to steroids Alcohol abuse, with withdrawal symptoms Start thiamine and folic acid Librium 15 mg PO TID as needed for agitation Hypertension Continue home medication Lovenox for DVT prophylaxis possibel switch to po antibiotics and steroids in am wean oxygen as tolerated discussed with patient Maral Clement MD Dec 27, 2016 16:34
[2016-12-27] MEDS: REMOVE OLD NICODERM (NICOTINE) PATCH TD SCH (22:11)
[2016-12-28] VITALS (8 sets, daily range): BP systolic 123–136; BP diastolic 68–89; PULSE 76–94; RESP 14–20; TEMP 97.5–98.7; O2SAT 90–98
[2016-12-28] MEDS: cefTRIAXone INJ 1,000 MG in SODIUM CHLORIDE 0.9% INJ 100 ML IV SCH (02:02)
[2016-12-28] MEDS: AZITHROMYCIN INJ 500 MG in SODIUM CHLOR 0.9% 250 ML INJ 250 ML IV SCH (02:02)
[2016-12-28] MEDS: SODIUM CHLOR 0.9% 1000 ML INJ 1,000 ML IV SCH (02:03)
[2016-12-28] MEDS: RESP: ALBUTEROL 2.5 MG/IPRATROPIUM 0.5 MG NEB (PRN) NEB (02:28)
[2016-12-28 07:43] LABS: AUTOMATED NEUTROPHIL # 10.5 TH/MM3 (1.8-7.7); BASOPHIL % 0.1 % (0.0-2.0); HEMATOCRIT 37.5 % (39.0-51.0); HEMO FLAGS DIFF FINAL; LYMPH % 17.5 % (9.0-44.0); LYMPHOCYTE # 2.4 TH/MM3 (1.0-4.8); MEAN CELL VOLUME 94.1 FL (80.0-100.0); MEAN CORPUSCULAR HEMOGLOBIN 31.2 PG (27.0-34.0); MEAN CORPUSCULAR HGB CONC 33.1 % (32.0-36.0); MONO % 5.6 % (0.0-8.0); NEUT % 76.8 % (16.0-70.0); PLATELET COUNT 300 TH/MM3 (150-450); RED BLOOD COUNT 3.98 MIL/MM3 (4.50-5.90); RED CELL DISTRIBUTION WIDTH 14.3 % (11.6-17.2); WHITE BLOOD COUNT 13.7 TH/MM3 (4.0-11.0)
[2016-12-28] MEDS: RESP: ALBUTEROL 2.5 MG/IPRATROPIUM 0.5 MG NEB (SCH) NEB ×4 (07:53→19:09)
[2016-12-28 08:12] LABS: BICARBONATE 25.4 MEQ/L (21.0-32.0); POTASSIUM 3.7 MEQ/L (3.5-5.1)
[2016-12-28] MEDS: ENOXAPARIN SODIUM 40 MG/0.4 ML SYRINGE SQ SCH (08:35)
[2016-12-28] MEDS: FOLIC ACID 1 MG TAB PO SCH (08:35)
[2016-12-28] MEDS: NICOTINE 7 MG/24 HR PATCH TD SCH (08:35)
[2016-12-28] MEDS: amLODIPine BESYLATE 5 MG TAB PO SCH (08:35)
[2016-12-28] MEDS: THIAMINE HCL 100 MG TAB PO SCH (08:35)
[2016-12-28] MEDS: FLUTICASONE PROPIONATE 50 MCG/ACT 16 GM NASAL SPRAY EACH NARE SCH (08:36)
[2016-12-28] MEDS: guaiFENesin E.R. 600 MG TAB PO SCH ×2 (08:36→20:48)
[2016-12-28] MEDS: SODIUM CHLORIDE 0.9% FLUSH 5 ML FLUSH FLUSH SCH ×2 (08:36→20:50)
[2016-12-28] MEDS: methylPREDNISolone SOD SUCC 40 MG/1 ML VIAL IV PUSH SCH (08:36)
--- NOTE | 2016-12-28 11:08 | HHI.PR ---
Subjective Remarks coarse cough, nonproductive appetite good alert, comfortable except to cough fatique mild no SOB at rest. (Alena Mcmanus) Objective Objective Results - Vital Signs Date Time Temp Pulse Resp B/P Pulse Ox O2 Delivery O2 Flow Rate FiO2 12/28/16 08:00 98.0 79 14 136/78 95 12/28/16 07:54 93 Nasal Cannula 2.00 12/28/16 03:37 98.2 94 18 123/68 93 12/28/16 02:30 90 Nasal Cannula 2.00 12/27/16 23:05 97.9 84 18 120/76 96 12/27/16 20:09 97 Nasal Cannula 2.00 12/27/16 19:32 97.9 90 18 123/67 96 12/27/16 16:00 97.5 82 16 117/63 95 12/27/16 12:00 98.0 98 12 133/82 97 I/O 12/27/16 12/27/16 12/27/16 12/28/16 12/28/16 12/28/16 07:00 15:00 23:00 07:00 15:00 23:00 Intake Total 240 ml 683 ml 240 ml 240 ml Output Total 600 ml 500 ml 301 ml 300 ml Balance -360 ml 183 ml -61 ml -60 ml Intake Oral 240 ml 240 ml 240 ml 240 ml IV Total 443 ml Output Urine Total 600 ml 500 ml 300 ml 300 ml Stool Total 1 ml # Bowel Movements 0 1 0 (Alena Mcmanus) Result Diagram: 12/28/1655 12/28/16 0655 ROS General: Fatigue (mild), Other (10 point ROS done, cough coarse, mild fatique improving. other systems negative.) Pulmonary: Cough GI: BM (today.) (Alena Mcmanus) Physical Exam Physical Exam PHYSICAL EXAMINATION GENERAL: This is a well-developed, well-nourished male who appears to be in no acute distress at rest He is alert and responds. HEAD: Normocephalic without any lesion or mass noted. Facial features appear symmetric. OROPHARYNGEAL: Oropharynx without erythema or edema. NECK: Supple. No nuchal rigidity or lymphadenopathy. Trachea midline without deviation. CARDIAC: Regular rhythm, regular rate, S1 and S2 are heard. Murmur none, distant hs LUNGS: Clear to auscultation bilaterally. mild ant. wheeze, mild rhonchi. No use of accessory muscles on inspiration or expiration at rest. ABDOMEN: Soft, nontender, no organomegaly or masses. Bowel sounds are heard in all four quadrants. No rebound. No guarding. EXTREMITIES: No edema. Pulses equal bilateral. NEUROLOGICAL: Patient mood and affect appropriate. No focal deficit SKIN:Warm and moist, dry Objective Remarks Im still coughing, but feeling better. (Alena Mcmanus) A/P Assessment and Plan (1) COPD exacerbation (2) Pneumonia (3) Hypoxia (4) Alcohol withdrawal (5) Alcohol abuse (6) Hypertension (7) Tobacco use Assessment and Plan 36-year-old male with history of COPD not oxygen dependent, tobacco abuse. Patient to the emergency room with increased cough, wheezing, shortness of breath. Found with left-sided perihilar and basilar airspace disease most characteristic of mild bronchopneumonia per x-ray. Patient admitted with COPD exacerbation, hypoxia and pneumonia. -Continue with IV fluids, decrease to 50 cc/hr Continue with empiric antibiotics and follow cultures Solu-Medrol 40 mg IV every 12 Continue with DuoNeb's, states they are helping. Cough continues, but breathing effort improved. Monitor sats switch to po steroids and antibiotics in am, if doing ok -leucocytosis sec to steroids Alcohol abuse, with withdrawal symptoms Start thiamine and folic acid Librium 15 mg PO TID as needed for agitation Hypertension Continue home medication Lovenox for DVT prophylaxis possible switch to po antibiotics and steroids in am, will eval with Dr. Clement. wean oxygen as tolerated discussed with patient, discharge planning possible today or am. Discussed With: Family (patient), Other (Dr. Clement, pt seen on her behalf) ( Alena Mcmanus) Assessment and Plan patient seen and examined breathing much better anxious to go home d/c i/v fluids d/c methylprednisolone switch to po prednisone starting am wean oxygen as tolerated likely home in am discussed with patient discussed with Alena FELICIANO discussed with nursing staff (Maral Clement MD) Alena Mcmanus Dec 28, 2016 11:08 Maral Clement MD Dec 28, 2016 14:50
[2016-12-28] MEDS: REMOVE OLD NICODERM (NICOTINE) PATCH TD SCH (20:50)
[2016-12-29] VITALS (7 sets, daily range): BP systolic 130–143; BP diastolic 80–95; PULSE 77–88; RESP 18–20; TEMP 97.6–98.4; O2SAT 90–95
[2016-12-29] MEDS: cefTRIAXone INJ 1,000 MG in SODIUM CHLORIDE 0.9% INJ 100 ML IV SCH (02:48)
[2016-12-29] MEDS: AZITHROMYCIN INJ 500 MG in SODIUM CHLOR 0.9% 250 ML INJ 250 ML IV SCH (02:50)
[2016-12-29] MEDS: RESP: ALBUTEROL 2.5 MG/IPRATROPIUM 0.5 MG NEB (PRN) NEB (03:01)
[2016-12-29] MEDS: RESP: ALBUTEROL 2.5 MG/IPRATROPIUM 0.5 MG NEB (SCH) NEB ×3 (06:35→15:22)
[2016-12-29 08:08] LABS: AUTOMATED NEUTROPHIL # 6.6 TH/MM3 (1.8-7.7); BASOPHIL # 0.1 TH/MM3 (0-0.2); EOSINOPHIL # 0.1 TH/MM3 (0-0.4); EOSINOPHIL % 0.8 % (0.0-4.0); HEMATOCRIT 39.5 % (39.0-51.0); HEMO FLAGS DIFF FINAL; LYMPH % 35.9 % (9.0-44.0); LYMPHOCYTE # 4.1 TH/MM3 (1.0-4.8); MEAN CELL VOLUME 94.4 FL (80.0-100.0); MEAN CORPUSCULAR HGB CONC 32.9 % (32.0-36.0); MONO % 5.6 % (0.0-8.0); NEUT % 56.7 % (16.0-70.0); PLATELET COUNT 280 TH/MM3 (150-450); RED BLOOD COUNT 4.18 MIL/MM3 (4.50-5.90); RED CELL DISTRIBUTION WIDTH 14.2 % (11.6-17.2); WHITE BLOOD COUNT 11.6 TH/MM3 (4.0-11.0)
[2016-12-29 08:30] LABS: BICARBONATE 25.6 MEQ/L (21.0-32.0); POTASSIUM 3.4 MEQ/L (3.5-5.1)
[2016-12-29] MEDS: FLUTICASONE PROPIONATE 50 MCG/ACT 16 GM NASAL SPRAY EACH NARE SCH (09:00)
[2016-12-29] MEDS ORDERED: predniSONE 20 MG TAB PO SCH (09:00)
[2016-12-29] MEDS: SODIUM CHLORIDE 0.9% FLUSH 5 ML FLUSH FLUSH SCH (09:00)
--- NOTE | 2016-12-29 09:11 | HHI.PR ---
Subjective Remarks coarse cough, nonproductive appetite good alert, fatique mild no SOB at rest. O2 sat, 95 on rm air (Alena Mcmanus) Objective Objective Results - Vital Signs Date Time Temp Pulse Resp B/P Pulse Ox O2 Delivery O2 Flow Rate FiO2 12/29/16 07:10 Room Air 12/29/16 06:37 90 Nasal Cannula 2.00 12/29/16 04:00 98.1 80 18 131/86 95 12/29/16 03:03 95 Nasal Cannula 2.00 12/29/16 00:00 98.4 84 18 130/80 93 12/28/16 20:00 97.5 76 18 128/89 98 12/28/16 16:00 98.7 83 20 132/84 97 12/28/16 16:00 Nasal Cannula 1.50 12/28/16 15:17 94 Nasal Cannula 2.00 12/28/16 12:00 97.9 88 16 131/85 94 I/O 12/28/16 12/28/16 12/28/16 12/29/16 12/29/16 12/29/16 07:00 15:00 23:00 07:00 15:00 23:00 Intake Total 240 ml 1601 ml 480 ml 240 ml Output Total 300 ml 1375 ml 200 ml Balance -60 ml 226 ml 480 ml 40 ml Intake Oral 240 ml 480 ml 480 ml 240 ml IV Total 1121 ml Output Urine Total 300 ml 1375 ml 200 ml # Voids 3 # Bowel Movements 0 1 1 (Alena Mcmanus) Result Diagram: 12/29/16 0731 12/29/16 0731 ROS General: Weakness (mild, improved) Pulmonary: Cough, SOB (exertional;) (Alena Mcmanus) Physical Exam Physical Exam PHYSICAL EXAMINATION GENERAL: well-developed, well-nourished male who appears to be in no acute distress at rest. He is alert and awake HEAD: Normocephalic without any lesion or mass noted. Facial features appear symmetric. OROPHARYNGEAL: Oropharynx without erythema or edema. NECK: Supple. No nuchal rigidity or lymphadenopathy. Trachea midline without deviation. CARDIAC: Regular rhythm, regular rate, S1 and S2 are heard, distant Murmur none LUNGS: diminished to auscultation bilaterally. no wheeze, no rhonchi ABDOMEN: Soft, nontender, no organomegaly or masses. Bowel sounds are heard in all four quadrants. No rebound. No guarding. EXTREMITIES: no edema. Pulses equal bilateral. NEUROLOGICAL: Patient mood and affect appropriate. No focal deficit SKIN:Warm and moist Objective Remarks I want go home if possible (Alena Mcmanus) A/P Assessment and Plan (1) COPD exacerbation (2) Pneumonia (3) Hypoxia (4) Alcohol withdrawal (5) Alcohol abuse (6) Hypertension (7) Tobacco use Assessment and Plan 36-year-old male with history of COPD not oxygen dependent, tobacco abuse. Patient to the emergency room with increased cough, wheezing, shortness of breath. Found with left-sided perihilar and basilar airspace disease most characteristic of mild bronchopneumonia per x-ray. Patient admitted with COPD exacerbation, hypoxia and pneumonia. -Continue with IV fluids, decrease to 50 cc/hr Continue with empiric antibiotics and follow cultures,Azithromycin, Rocephin Continue with DuoNeb's, states they are helping. Cough continues, but breathing effort improved. Flonase and cough meds used. Monitor sats, currently 95 on rm. air PO steroids OOB, activity increased, improvement with treatment plan. Alcohol abuse, with withdrawal symptoms Start thiamine and folic acid Librium 15 mg PO TID as needed for agitation Hypertension Continue home medication Lovenox for DVT prophylaxis discussed with patient, D/W Dr. Lobo, patient seen on his behalf discharge planning possible today Discharge Planning home, Discussed With: Family (patient), Other (Alena Mcmanus) Assessment and Plan Patient seen, examined by myself, Dr. Lobo Above reviewed and agreed Discussed with nurse Discussed with nurse practitioner home today No smoking No alcohol We will give a prescription for Librium for 2 weeks The patient was informed not to consume any alcohol or to drive during taking Librium He verbalized understanding . Discussed With: Nurse (Rj Lobo MD) Alena Mcmanus Dec 29, 2016 09:11 Rj Lobo MD Dec 29, 2016 13:37
[2016-12-29] MEDS: amLODIPine BESYLATE 5 MG TAB PO SCH (09:23)
[2016-12-29] MEDS: FOLIC ACID 1 MG TAB PO SCH (09:23)
[2016-12-29] MEDS: ENOXAPARIN SODIUM 40 MG/0.4 ML SYRINGE SQ SCH (09:23)
[2016-12-29] MEDS: guaiFENesin E.R. 600 MG TAB PO SCH (09:23)
[2016-12-29] MEDS: THIAMINE HCL 100 MG TAB PO SCH (09:23)
[2016-12-29] MEDS: NICOTINE 7 MG/24 HR PATCH TD SCH (09:24)
[2016-12-29] MEDS ORDERED: CHLO5CAP3 PO (13:43)
[2016-12-29] MEDS ORDERED: PRED20 PO (13:43)
--- NOTE | 2017-02-06 23:20 | HHI.DS ---
Discharge Summary Admission Date Dec 26, 2016 at 05:12 Discharge Date: Dec 29, 2016 Admitting Diagnosis copd exacerbation, pneumonia (1) COPD exacerbation (2) Pneumonia (3) Hypoxia (4) Alcohol withdrawal (5) Alcohol abuse (6) Hypertension (7) Tobacco use Imaging Last Impressions Chest X-Ray 12/26/16 0242 Signed Impressions: Service Date/Time: Monday, December 26, 2016 02:59 - CONCLUSION: 1. Left- sided perihilar and basilar airspace disease most characteristic of a mild bronchopneumonia. Gonzales Hensley MD Hospital Course This is a 36-year-old male history of COPD, hypertension, alcohol abuse. Apparently patient was placed under arrest last night and at the [facility] he started to complain of shortness of breath. Indicates he's had increased cough with wheezing. He had increased nasal drainage, no sputum. He thinks he may have had a fever associated with chills. He continues to smoke approximately half a pack. Patient also endorsed history of EtOH abuse, he had a couple of bottles of wine yesterday. Noted very tremulous, states "I'm going through withdrawals". In the emergency room, patient was evaluated was noted hypoxic. He was tachycardic, no fever. Hemodynamically stable. Artery workup essentially unremarkable. No white blood count elevation. Chest x-ray showed left-sided perihilar and basilar airspace disease most characteristic of a mild bronchopneumonia. Cultures were obtained, influenza was negative. Patient was started on empiric antibiotics, given DuoNeb's and IV steroids. Patient was evaluated in the presence of 2 guards. SOB has improved. Patient was admitted for further evaluation and treatment: (1) COPD exacerbation (2) Pneumonia (3) Hypoxia (4) Alcohol withdrawal (5) Alcohol abuse (6) Hypertension (7) Tobacco use During the course of the hospitalization, the following took place: 36-year-old male with history of COPD not oxygen dependent, tobacco abuse. Patient to the emergency room with increased cough, wheezing, shortness of breath. Found with left-sided perihilar and basilar airspace disease most characteristic of mild bronchopneumonia per x-ray. Patient admitted with COPD exacerbation, hypoxia and pneumonia. -Put on IV fluids Put empiric antibiotics and followed cultures started on Solu-Medrol 40 mg IV every 12, then switched to PO Continue with DuoNeb's Monitored sats Ordered Mucinex Alcohol abuse, with withdrawal symptoms Started thiamine and folic acid Librium 10 mg PO TID as needed for agitation Hypertension Continued home medication Lovenox for DVT prophylaxis Home medications reviewed, initiated as indicated Pt. condition improved, sats stable. Pt. discharged home in stable condition. Pt Condition on Discharge: Stable Discharge Disposition: Discharge Home Discharge Instructions DIET: Follow Instructions for: As Tolerated, No Restrictions Additional Diet Instructions: No smoking ever No alcohol ever Activities you can perform: Regular-No Restrictions Follow up Referrals: PCP Follow-up - 1 Week New Medications: Chlordiazepoxide (Chlordiazepoxide) 5 Mg Cap 5 MG PO Q6H PRN AGITATION #60 CAP Prednisone (Prednisone) 20 Mg Tab 20 MG PO DAILY Provide 30 pills of 10 mg each, take 1 pill twice a day for 10 days then 1 pill once a day for 10 days Broncospasm #20 TAB Continued Medications: Albuterol 18 GM Inh (Ventolin Hfa 18 GM Inh) 90 Mcg/Act Aer 1 PUFF INH Q4H PRN SHORTNESS OF BREATH #1 Ref 0 INHALER Albuterol Neb (Albuterol Neb) 2.5 Mg/0.5 Ml Neb 2.5 MG NEB ONCE Note: The Albuterol Sulfate Inhalation Solution is concentrated and must be diluted. Read complete instructions carefully before using. Breathing Treatment #1 Ref 0 NEBULE Amlodipine (Amlodipine) 10 Mg Tab 10 MG PO DAILY Blood Pressure Management #30 Ref 0 TAB Discontinued Medications: Amlodipine (Amlodipine) 5 Mg Tab 5 MG PO DAILY Blood Pressure Management #30 Ref 0 TAB Rosmery Solis [facility] Feb 06, 2017 23:20
== END 2016-12-29 16:06 | disposition home or self-care (01) | DRG 194 ==
LOC: NEPE 01:59 → NEDA 05:12 → NEDH 08:56 → N04B 14:25
PROVIDERS: ADMIT Internal Medicine; ATTEND Internal Medicine
DX: J18.0 Bronchopneumonia, unspecified organism (principal); J44.1 Chronic obstructive pulmonary disease with (acute) exacerbation; J44.0 Chronic obstructive pulmonary disease with (acute) lower respiratory infection; F10.239 Alcohol dependence with withdrawal, unspecified; I10 Essential (primary) hypertension; F17.210 Nicotine dependence, cigarettes, uncomplicated; R09.02 Hypoxemia
CPT/HCPCS: 71010; 80048; 80053; 81001; 82550; 82552; 83735; 83880; 84484; 85025; 85610; 85730; 87040; 87804; 90732; 93005; 94640; 94664; 96365; 96367; J0456; J0696; J1650; J2060; J2920; J7030; J7050; J7512

== ENCOUNTER 2018-01-07 15:02 | Emergency (ER) | payer OTHER ==
[~2018-01-07] VITALS: Ht 180.3 cm; Wt 89.0 kg
[~2018-01-07 15:02] MED LIST changes: -1-ME1LIQ PO; +ALBU.5I NEB; -ALBU0.086 NEB; -ALBU8I INH; +AMLO10TA2 PO; -CHLO25 PO; +CHLO5CAP3 PO; -FOLI1 PO; -LORA-474 PO; +PRED20 PO; -THIA100T PO; +VENTAER INH
[2018-01-07 15:04] VITALS: BP 137/75; PULSE 103; RESP 18; TEMP 98.8; O2SAT 96
[2018-01-07] MEDS ORDERED: GABA100C4 PO (15:18)
[2018-01-07] MEDS ORDERED: MORP1TAB24 PO (15:18)
[2018-01-07] MEDS ORDERED: OXYC1CAP PO (15:18)
[2018-01-07] MEDS ORDERED: DOXY100C PO (15:41)
[2018-01-07] MEDS ORDERED: CEPH-460 PO (15:41)
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
[2018-01-07] MEDS ORDERED: CEPHALEXIN MONOHYDRATE 500 MG CAP PO ONE (15:45)
[2018-01-07] MEDS ORDERED: DOXYCYCLINE HYCLATE 100 MG CAP PO ONE (15:45)
[2018-01-07] MEDS ORDERED: SULFAMETHOXAZOLE-TRIMETHOPRIM DS 800-160 MG TAB PO ONE (15:45)
== END 2018-01-07 15:52 | disposition home or self-care (01) ==
LOC: PHED 15:02
DX: L03.116 Cellulitis of left lower limb (principal); L03.115 Cellulitis of right lower limb; I10 Essential (primary) hypertension; J44.9 Chronic obstructive pulmonary disease, unspecified; M19.90 Unspecified osteoarthritis, unspecified site; F41.9 Anxiety disorder, unspecified; F32.9 Major depressive disorder, single episode, unspecified; F17.210 Nicotine dependence, cigarettes, uncomplicated; Z79.899 Other long term (current) drug therapy
CPT/HCPCS: 99283

== ENCOUNTER 2018-01-12 18:57 | Emergency (ER) | payer OTHER ==
[~2018-01-12] VITALS: Ht 180.3 cm; Wt 80.0 kg
[~2018-01-12 18:57] MED LIST changes: -ALBU.5I NEB; +CEPH-460 PO; -CHLO5CAP3 PO; +DOXY100C PO; +GABA100C4 PO; +MORP1TAB24 PO; +OXYC1CAP PO; -PRED20 PO; -VENTAER INH
[2018-01-12 19:26] VITALS: BP 152/92; PULSE 101; RESP 16; TEMP 98.8; O2SAT 97
--- NOTE | 2018-01-12 20:58 | PD ---
HPI Chief Complaint: Edema Time Seen by Provider: 20:46 Travel History International Travel<30 days: No Contact w/Intl Traveler<30days: No Traveled to known affect area: No History of Present Illness HPI This is a 37-year-old male with reported history of alcoholism, previous bilateral ankle fracture presents for evaluation of bilateral lower extremity edema. Symptoms started several days ago. He reports that he has had this problem several times in the past and is concerned that he may have cellulitis. He was seen at [place] recently and prescribed antibiotics but if symptoms have worsened and this is what prompted evaluation. He endorses heavy alcohol use over the past several days. Denies fevers. He has no history of DVT or PE and per chart review he has been evaluated for this edema in the past and has had negative ultrasound study. He has no history of CHF and he has been worked up for this in the past as well. Reports nausea. He has no other complaints at this time. 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) Neurologic: Yes Psychiatric: Yes Reproductive: No Respiratory: Yes (copd) Immunizations Current: Yes Pneumonia: Yes Seizures: Yes (alcohol related, last one was March) Tetanus Vaccination: Unknown Influenza Vaccination: Yes Past Surgical History Body Medical Devices: titanium plate r side of face, screws/pins bilat ankles Other Surgery: Yes (TITANIUM PLATE AND SCREWS TO RIGHT FACE/SKULL) Social History Alcohol Use: Yes (a couple times a week) Tobacco Use: Yes (11/02 PPD) Substance Use: Yes (MARIJUANA, STATES USED DILAUDID IN THE PAST) Allergies-Medications (Allergen,Severity, Reaction): Coded Allergies: No Known Allergies (Unverified Adverse Reaction, Unknown, 01/12/18) Reported Meds & Prescriptions Reported Meds & Active Scripts Active Doxycycline Hyclate 100 Mg Cap 100 Mg PO BID 10 Days Keflex (Cephalexin) 500 Mg Cap 500 Mg PO Q8H Reported Oxycodone (Oxycodone HCl) 5 Mg Cap Unknown Dose PO Q4H PRN Morphine ER (Morphine Sulfate) 15 Mg Tab 15 Mg PO BID Gabapentin 100 Mg Cap Unknown Dose PO BID Amlodipine (Amlodipine Besylate) 10 Mg Tab 10 Mg PO DAILY Review of Systems Except as stated in HPI: all other systems reviewed are Neg Physical Exam Narrative GENERAL: Disheveled male who appears older than stated age. SKIN: Warm and dry. HEAD: Atraumatic. Normocephalic. EYES: Pupils equal and round. No scleral icterus. No injection or drainage. ENT: No nasal bleeding or discharge. Mucous membranes pink and moist. NECK: Trachea midline. No JVD. CARDIOVASCULAR: Regular rate and rhythm. No murmur appreciated. RESPIRATORY: No accessory muscle use. Clear to auscultation. Breath sounds equal bilaterally. GASTROINTESTINAL: Abdomen soft, non-tender, nondistended. Hepatic and splenic margins not palpable. MUSCULOSKELETAL: No obvious deformities. Bilateral lower extremity tibial and pedal edema 2+ with mildly reddened skin. There are no open wounds. There is no induration or fluctuance. There is no proximal streaking. There is no inguinal lymphadenopathy. 2+ dorsalis pedis pulse bilaterally. Previous surgical scars noted to bilateral ankles. NEUROLOGICAL: Awake and alert. No obvious cranial nerve deficits. Motor grossly within normal limits. Mildly slurred speech. Data Data Last Documented VS Vital Signs Date Time Temp Pulse Resp B/P (MAP) Pulse Ox O2 Delivery O2 Flow Rate FiO2 01/12/18 19:26 98.8 101 16 152/92 (112) 97 Room Air Orders Orders Alcohol (Ethanol) (01/12/18 20:54) Complete Blood Count With Diff (01/12/18 20:54) Comprehensive Metabolic Panel (01/12/18 20:54) Ondansetron Inj (Zofran Inj) (01/12/18 21:00) Ketorolac Inj (Toradol Inj) (01/12/18 21:15) Lorazepam Inj (Ativan Inj) (01/12/18 21:15) Furosemide Inj (Lasix Inj) (01/12/18 22:15) Ed Discharge Order (01/12/18 22:13) Labs Laboratory Tests Test 01/12/18 21:09 White Blood Count 9.8 TH/MM3 Red Blood Count 4.04 MIL/MM3 Hemoglobin 13.0 GM/DL Hematocrit 38.4 % Mean Corpuscular Volume 94.9 FL Mean Corpuscular Hemoglobin 32.2 PG Mean Corpuscular Hemoglobin Concent 33.9 % Red Cell Distribution Width 13.9 % Platelet Count 299 TH/MM3 Mean Platelet Volume 8.8 FL Neutrophils (%) (Auto) 69.0 % Lymphocytes (%) (Auto) 21.9 % Monocytes (%) (Auto) 5.2 % Eosinophils (%) (Auto) 2.7 % Basophils (%) (Auto) 1.2 % Neutrophils # (Auto) 6.7 TH/MM3 Lymphocytes # (Auto) 2.1 TH/MM3 Monocytes # (Auto) 0.5 TH/MM3 Eosinophils # (Auto) 0.3 TH/MM3 Basophils # (Auto) 0.1 TH/MM3 CBC Comment DIFF FINAL Differential Comment Blood Urea Nitrogen 10 MG/DL Creatinine 0.57 MG/DL Random Glucose 112 MG/DL Total Protein 7.8 GM/DL Albumin 4.1 GM/DL Calcium Level 9.4 MG/DL Alkaline Phosphatase 104 U/L Aspartate Amino Transf (AST/SGOT) 55 U/L Alanine Aminotransferase (ALT/SGPT) 53 U/L Total Bilirubin 0.2 MG/DL Sodium Level 138 MEQ/L Potassium Level 3.6 MEQ/L Chloride Level 101 MEQ/L Carbon Dioxide Level 28.2 MEQ/L Anion Gap 9 MEQ/L Estimat Glomerular Filtration Rate 159 ML/MIN Ethyl Alcohol Level 68 MG/DL MDM Medical Decision Making Medical Screen Exam Complete: Yes Emergency Medical Condition: Yes Medical Record Reviewed: Yes Differential Diagnosis Dependent edema, hypoalbuminemia, nephrotic syndrome, bilateral DVT, bilateral cellulitis Narrative Course The patient's examination is most consistent with edema secondary to dependent edema versus hypoalbuminemia from chronic liver disease secondary to alcoholism versus chronic edema secondary to previous surgeries. There are no obvious cellulitic changes. Lab work was obtained today which is reassuring, no leukocytosis. At this point in time the plan is to give him a dose of IV Lasix and have him follow-up with his primary care physician. Recommended elevation and compression stockings. He is stable for discharge. Diagnosis Primary Impression: Dependent edema Referrals: [facility] Additional Instructions: Compression stockings. Elevate. Follow-up with primary care physician. Follow -up at [facility] for help with alcohol detoxification. Return for any emergent medical conditions. Med/Other Pt SpecificInfo: No Change to Meds Disposition: 01 DISCHARGE HOME Condition: Stable Trevon Diez Jan 12, 2018 20:58
[2018-01-12] MEDS ORDERED: ONDANSETRON HCL 4 MG/2 ML VIAL IV PUSH ONE (21:00)
[2018-01-12] MEDS ORDERED: LORazepam 2 MG/ML VIAL IV PUSH ONE (21:15)
[2018-01-12] MEDS ORDERED: KETOROLAC TROMETHAMINE 30 MG/ML (IVP) VIAL IV PUSH ONE (21:15)
[2018-01-12 21:23] LABS: AUTOMATED NEUTROPHIL # 6.7 TH/MM3 (1.8-7.7); BASOPHIL # 0.1 TH/MM3 (0-0.2); BASOPHIL % 1.2 % (0.0-2.0); EOSINOPHIL # 0.3 TH/MM3 (0-0.4); EOSINOPHIL % 2.7 % (0.0-4.0); HEMATOCRIT 38.4 % (39.0-51.0); LYMPH % 21.9 % (9.0-44.0); LYMPHOCYTE # 2.1 TH/MM3 (1.0-4.8); MEAN CELL VOLUME 94.9 FL (80.0-100.0); MEAN CORPUSCULAR HEMOGLOBIN 32.2 PG (27.0-34.0); MEAN CORPUSCULAR HGB CONC 33.9 % (32.0-36.0); MEAN PLATELET VOLUME 8.8 FL (7.0-11.0); MONO % 5.2 % (0.0-8.0); MONOCYTE # 0.5 TH/MM3 (0-0.9); PLATELET COUNT 299 TH/MM3 (150-450); RED BLOOD COUNT 4.04 MIL/MM3 (4.50-5.90); RED CELL DISTRIBUTION WIDTH 13.9 % (11.6-17.2); WHITE BLOOD COUNT 9.8 TH/MM3 (4.0-11.0)
[2018-01-12 21:36] LABS: ALBUMIN 4.1 GM/DL (3.4-5.0); AST (GOT) 55 U/L (15-37); BICARBONATE 28.2 MEQ/L (21.0-32.0); BLOOD UREA NITROGEN 10 MG/DL (7-18); CALCIUM 9.4 MG/DL (8.5-10.1); CHLORIDE 101 MEQ/L (98-107); CREATININE 0.57 MG/DL (0.60-1.30); GLOMERULAR FILTRATION RATE 159 ML/MIN (>89); GLUCOSE,RANDOM 112 MG/DL (74-106); SODIUM (NA) 138 MEQ/L (136-145)
[2018-01-12 21:37] LABS: ALT (GPT) 53 U/L (12-78)
[2018-01-12 21:39] LABS: ALKALINE PHOSPHATASE 104 U/L (45-117); TOTAL BILIRUBIN ADULT 0.2 MG/DL (0.2-1.0); TOTAL PROTEIN 7.8 GM/DL (6.4-8.2)
[2018-01-12] MEDS ORDERED: FUROSEMIDE 20 MG/2 ML VIAL IV PUSH ONE (22:15)
== END 2018-01-12 22:42 | disposition home or self-care (01) ==
LOC: NEPD 18:57
DX: R60.0 Localized edema (principal); J44.9 Chronic obstructive pulmonary disease, unspecified; I10 Essential (primary) hypertension; R11.0 Nausea; F12.90 Cannabis use, unspecified, uncomplicated; Z72.89 Other problems related to lifestyle; Z72.0 Tobacco use; Z79.899 Other long term (current) drug therapy
CPT/HCPCS: 80053; 80307; 85025; 96374; 96375; 99284; J1885; J1940; J2060; J2405

== ENCOUNTER 2018-01-21 15:41 | Emergency (ER) | payer OTHER ==
[2018-01-21 15:50] VITALS: BP 159/102; PULSE 114; RESP 20; RESP 26; TEMP 99.9; O2SAT 99
--- NOTE | 2018-01-21 16:11 | PD ---
HPI Chief Complaint: Alcohol/Drug Intoxication Time Seen by Provider: 15:53 Travel History International Travel<30 days: No Contact w/Intl Traveler<30days: No History of Present Illness HPI 37yo M with PMH of alcohol abuse here with multiple complaints. Pt usually drinks 2 liters of vodka but has been self detoxing taking a shot here and there. Pt is diaphoretic, shaky, tachycardic and has positive review of systems. He complains of midsternal chest pain and sob. Feels generalized weakness. Pt had bilateral ankle fractures and is on opiates as well. Said he last took his opiate today. Last had a drink a few hours ago. 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) Neurologic: Yes Psychiatric: Yes Reproductive: No Respiratory: Yes (copd) Immunizations Current: Yes Pneumonia: Yes Seizures: Yes (alcohol related, last one was March) Past Surgical History Body Medical Devices: titanium plate r side of face, screws/pins bilat ankles Other Surgery: Yes (TITANIUM PLATE AND SCREWS TO RIGHT FACE/SKULL) Social History Alcohol Use: Yes (a couple times a week) Tobacco Use: Yes (11/02 PPD) Substance Use: Yes (MARIJUANA, STATES USED DILAUDID IN THE PAST) Allergies-Medications (Allergen,Severity, Reaction): Coded Allergies: No Known Allergies (Unverified Adverse Reaction, Unknown, 01/21/18) Reported Meds & Prescriptions Reported Meds & Active Scripts Active Amlodipine (Amlodipine Besylate) 10 Mg Tab 10 Mg PO DAILY Chlordiazepoxide HCl 25 Mg Capsule 50 Mg PO Q6HR PRN 3 Days Reported Oxycodone (Oxycodone HCl) 5 Mg Cap Unknown Dose PO Q4H PRN Morphine ER (Morphine Sulfate) 15 Mg Tab 15 Mg PO BID Gabapentin 100 Mg Cap Unknown Dose PO BID Amlodipine (Amlodipine Besylate) 10 Mg Tab 10 Mg PO DAILY Review of Systems Except as stated in HPI: all other systems reviewed are Neg Physical Exam Narrative GENERAL: 37yo M in mild distress. SKIN: Diaphoretic. HEAD: Atraumatic. Normocephalic. EYES: Pupils equal and round. No scleral icterus. No injection or drainage. ENT: No nasal bleeding or discharge. Mucous membranes pink and moist. NECK: Trachea midline. No JVD. CARDIOVASCULAR: Regular rate and rhythm. No murmur appreciated. RESPIRATORY: No accessory muscle use. Clear to auscultation. Breath sounds equal bilaterally. GASTROINTESTINAL: Abdomen soft, non-tender, nondistended. MUSCULOSKELETAL: No obvious deformities. No clubbing. No cyanosis. No edema. NEUROLOGICAL: Awake and alert. No obvious cranial nerve deficits. Motor grossly within normal limits in all extremities. Normal speech. Tremulous. + Tongue fasciculations. Data Data Last Documented VS Vital Signs Date Time Temp Pulse Resp B/P (MAP) Pulse Ox O2 Delivery O2 Flow Rate FiO2 01/21/18 19:39 100 20 150/109 (123) 98 01/21/18 17:44 Room Air 01/21/18 16:26 99.9 Orders Orders Complete Blood Count With Diff (01/21/18 16:01) Basic Metabolic Panel (Bmp) (01/21/18 16:01) Lipase (01/21/18 16:01) Lorazepam Inj (Ativan Inj) (01/21/18 16:15) Sodium Chlor 0.9% 1000 Ml Inj (Ns 1000 M (01/21/18 16:15) Alcohol (Ethanol) (01/21/18 16:01) Electrocardiogram (01/21/18 ) Chest, Single Ap (01/21/18 ) Urinalysis - C+S If Indicated (01/21/18 16:11) Troponin I (01/21/18 16:05) Thiamine Inj (Thiamine Inj) (01/21/18 17:00) Potassium Chloride (Kcl) (01/21/18 17:00) Magnesium (Mg) (01/21/18 16:05) Sodium Chlor 0.9% 1000 Ml Inj (Ns 1000 M (01/21/18 18:00) Chlordiazepoxide (Librium) (01/21/18 17:55) Amlodipine (Norvasc) (01/21/18 18:15) Hydralazine Inj (Apresoline Inj) (01/21/18 19:15) Ed Discharge Order (01/21/18 20:17) Labs Laboratory Tests Test 01/21/18 16:05 01/21/18 17:05 White Blood Count 6.5 TH/MM3 Red Blood Count 4.54 MIL/MM3 Hemoglobin 14.0 GM/DL Hematocrit 42.5 % Mean Corpuscular Volume 93.7 FL Mean Corpuscular Hemoglobin 30.7 PG Mean Corpuscular Hemoglobin Concent 32.8 % Red Cell Distribution Width 13.1 % Platelet Count 256 TH/MM3 Mean Platelet Volume 8.5 FL Neutrophils (%) (Auto) 70.4 % Lymphocytes (%) (Auto) 19.9 % Monocytes (%) (Auto) 7.9 % Eosinophils (%) (Auto) 0.7 % Basophils (%) (Auto) 1.1 % Neutrophils # (Auto) 4.6 TH/MM3 Lymphocytes # (Auto) 1.3 TH/MM3 Monocytes # (Auto) 0.5 TH/MM3 Eosinophils # (Auto) 0.0 TH/MM3 Basophils # (Auto) 0.1 TH/MM3 CBC Comment DIFF FINAL Differential Comment Blood Urea Nitrogen 8 MG/DL Creatinine 0.56 MG/DL Random Glucose 107 MG/DL Calcium Level 9.5 MG/DL Magnesium Level 1.8 MG/DL Sodium Level 134 MEQ/L Potassium Level 3.3 MEQ/L Chloride Level 97 MEQ/L Carbon Dioxide Level 29.5 MEQ/L Anion Gap 8 MEQ/L Estimat Glomerular Filtration Rate 162 ML/MIN Troponin I LESS THAN 0.02 NG/ML Lipase 175 U/L Ethyl Alcohol Level LESS THAN 3 MG/DL Urine Collection Type CLEAN CATCH Urine Color YELLOW Urine Turbidity CLEAR Urine pH 7.5 Urine Specific [place] 1.010 Urine Protein NEG mg/dL Urine Glucose (UA) NEG mg/dL Urine Ketones NEG mg/dL Urine Occult Blood NEG Urine Nitrite NEG Urine Bilirubin NEG Urine Urobilinogen 0.2 MG/DL Urine Leukocyte Esterase NEG Urine WBC 0-2 /hpf Microscopic Urinalysis Comment CULT NOT INDICATED MDM Medical Decision Making Medical Screen Exam Complete: Yes Emergency Medical Condition: Yes Interpretation(s) EKG: Sinus tachycardia at 104bpm. Normal axis. Q wave III. No significant ST segment elevation or depression. Differential Diagnosis Alcohol withdrawal vs. ACS vs. dehydration vs. alcohol ketoacidosis Narrative Course 37yo M with symptoms consistent with alcohol withdrawal. Labs reviewed, no leukocytosis. H/H normal. Mild hypokalemia at 3.3, replaced. Magnesium normal. Troponin negative. Lipase normal. No increase anion gap. Alcohol less than 3. UA negative. No ketones. CXR negative. Pt initially mildly tachycardic at 114bpm. Pt given NS IVF, thiamine, ativan 1mg IV. Pt reevaluated at bedside and is feeling much better. He is less tremulous but still with some mild tremor in upper extremities. Will given librium and reevaluate. Will give amlodipine for elevated blood pressure as well since pt has history of HTN and did not take his amlodipine for 1 week. Pt reevaluated at bedside after librium and said he feels better. Pt said he no longer feel like his chest was coming out. Do not think it was cardiac. Pt wants to try outpatient treatment first. Diastolic was still 108 after amlodipine so pt given hydralazine. Pt looks much better and will give prescription of librium and refer pt to [facility] for outpatient detox. Pt's father is with him right now and pt said he lives with his parents so will go home with his father. Return precautions given. Diagnosis Primary Impression: Alcohol withdrawal Qualified Codes: F10.239 - Alcohol dependence with withdrawal, unspecified Patient Instructions: General Instructions Departure Forms: Tests/Procedures Additional Instructions: Please follow up with [facility] for alcohol detox. Please follow up with your primary care physician for blood pressure control. Please return to the ED if symptoms worsen. Med/Other Pt SpecificInfo: Prescription(s) given Scripts Amlodipine (Amlodipine) 10 Mg Tab 10 MG PO DAILY for Blood Pressure Management, #30 TAB 0 Refills Prov: Abena Gamino DO 01/21/18 Chlordiazepoxide HCl (Chlordiazepoxide HCl) 25 Mg Capsule 50 MG PO Q6HR Y for WITHDRAWAL for 3 Days Prov: Abena Gamino DO 01/21/18 Disposition: 01 DISCHARGE HOME Condition: Stable Abena Gamino DO Jan 21, 2018 16:11
[2018-01-21 16:14] LABS: AUTOMATED NEUTROPHIL # 4.6 TH/MM3 (1.8-7.7); BASOPHIL # 0.1 TH/MM3 (0-0.2); BASOPHIL % 1.1 % (0.0-2.0); EOSINOPHIL % 0.7 % (0.0-4.0); HEMATOCRIT 42.5 % (39.0-51.0); LYMPH % 19.9 % (9.0-44.0); LYMPHOCYTE # 1.3 TH/MM3 (1.0-4.8); MEAN CELL VOLUME 93.7 FL (80.0-100.0); MEAN CORPUSCULAR HEMOGLOBIN 30.7 PG (27.0-34.0); MEAN CORPUSCULAR HGB CONC 32.8 % (32.0-36.0); MEAN PLATELET VOLUME 8.5 FL (7.0-11.0); MONO % 7.9 % (0.0-8.0); MONOCYTE # 0.5 TH/MM3 (0-0.9); NEUT % 70.4 % (16.0-70.0); PLATELET COUNT 256 TH/MM3 (150-450); RED BLOOD COUNT 4.54 MIL/MM3 (4.50-5.90); RED CELL DISTRIBUTION WIDTH 13.1 % (11.6-17.2); WHITE BLOOD COUNT 6.5 TH/MM3 (4.0-11.0)
[2018-01-21] MEDS ORDERED: LORazepam 2 MG/ML VIAL IV PUSH ONE (16:15)
[2018-01-21] MEDS ORDERED: SODIUM CHLOR 0.9% 1000 ML INJ 1,000 ML IV ONE ×2 (16:15→18:00)
[2018-01-21 16:21] LABS: CHLORIDE 97 MEQ/L (98-107); SODIUM (NA) 134 MEQ/L (136-145)
[2018-01-21 16:24] LABS: BICARBONATE 29.5 MEQ/L (21.0-32.0); BLOOD UREA NITROGEN 8 MG/DL (7-18); CALCIUM 9.5 MG/DL (8.5-10.1); GLUCOSE,RANDOM 107 MG/DL (74-106)
[2018-01-21 16:26] VITALS: BP 160/106; PULSE 101; RESP 26; TEMP 99.9; O2SAT 98
[2018-01-21 16:27] LABS: CREATININE 0.56 MG/DL (0.60-1.30); GLOMERULAR FILTRATION RATE 162 ML/MIN (>89)
--- NOTE | 2018-01-21 16:37 | RADRPT ---
EXAM DATE/TIME: 01/21/2018 16:28 [place] COMPARISON: CHEST SINGLE AP, December 26, 2016, 2:59. INDICATIONS : Chest pain. MEDICAL HISTORY : None. SURGICAL HISTORY : None. ENCOUNTER: Initial ACUITY: 1 day PAIN SCORE: 5/10 LOCATION: Bilateral chest FINDINGS: A single view of the chest demonstrates the lungs to be symmetrically aerated without evidence of mas s, infiltrate or effusion. The cardiomediastinal contours are unremarkable. Osseous structures are intact. CONCLUSION: No acute disease. Michael Smith MD on January 21, 2018 at 16:33 Board Certified Radiologist. This report was verified electronically.
[2018-01-21 16:45] LABS: TROPONIN I LESS THAN 0.02 NG/ML (0.02-0.05)
[2018-01-21] MEDS ORDERED: POTASSIUM CHLORIDE 20 MEQ CONTROLLED RELEASE TAB PO ONE (17:00)
[2018-01-21] MEDS ORDERED: THIAMINE INJ 100 MG in SODIUM CHLORIDE 0.9% INJ 100 ML IV ONE (17:00)
[2018-01-21 17:10] LABS: MAGNESIUM 1.8 MG/DL (1.5-2.5)
[2018-01-21 17:14] LABS: BILIRUBIN, URINE NEG (NEG); BLOOD, URINE NEG (NEG); GLUCOSE,URINE NEG (NEG); KETONE, URINE NEG (NEG); NITRITE,URINE NEG (NEG); PH, URINE 7.5 (5.0-8.5); URINE COLOR YELLOW (YELLW/STRAW); URINE LEUKOCYTE ESTERASE NEG (NEG)
[2018-01-21 17:22] LABS: WBC, URINE 0-2 /hpf (0-5)
[2018-01-21 17:43] VITALS: BP 152/108; PULSE 101; RESP 18; O2SAT 99
[2018-01-21] MEDS ORDERED: chlordiazePOXIDE 25 MG CAP PO STA (17:55)
[2018-01-21] MEDS ORDERED: amLODIPine BESYLATE 5 MG TAB PO ONE (18:15)
[2018-01-21] MEDS ORDERED: hydrALAZINE HCL 20 MG/ML VIAL IV PUSH ONE (19:15)
[2018-01-21] MEDS ORDERED: CHLO25CA9 PO (19:20)
[2018-01-21] MEDS ORDERED: AMLO10TA2 PO (19:22)
[2018-01-21 19:39] VITALS: BP 150/109; PULSE 100; RESP 20; O2SAT 98
[2018-01-21 20:00] VITALS: BP 168/100; PULSE 100; RESP 20; O2SAT 97
[2018-01-21 21:03] VITALS: BP 150/109
--- NOTE | 2018-01-23 00:27 | EKG ---
Date Performed: 01/21/2018 Time Performed: 16:39:13 PTAGE: 37 years EKG: SINUS TACHYCARDIA POSSIBLE INFERIOR MYOCARDIAL INFARCTION ABNORMAL RHYTHM ECG PREVIOUS TRACING : 12/26/2016 03.54 DOCTOR: Yancy Guillory Interpretating Date/Time 01/23/2018 00:13:53
== END 2018-01-21 21:12 | disposition home or self-care (01) ==
LOC: PHED 15:41
DX: F10.239 Alcohol dependence with withdrawal, unspecified (principal); R00.0 Tachycardia, unspecified; I10 Essential (primary) hypertension; J44.9 Chronic obstructive pulmonary disease, unspecified; M19.90 Unspecified osteoarthritis, unspecified site; F32.9 Major depressive disorder, single episode, unspecified; F41.9 Anxiety disorder, unspecified; F17.210 Nicotine dependence, cigarettes, uncomplicated; Z79.899 Other long term (current) drug therapy
CPT/HCPCS: 71045; 80048; 80307; 81001; 83690; 83735; 84484; 85025; 93005; 96361; 96365; 96375; 99285; J0360; J2060; J3411; J7030